=== PATIENT | female | born 1940 | race Caucasian/White ===

== ENCOUNTER → 2016-08-18 | Outpatient (REF) | payer MEDICARE | LOC: M LAB REF 12:55 | PROVIDERS: ATTEND Internal Medicine Nephrology | DX: N39.0 Urinary tract infection, site not specified (principal) ==

== ENCOUNTER → 2020-12-14 | Outpatient (REF) | payer MEDICARE | LOC: M LAB REF 12:55 | PROVIDERS: ATTEND Internal Medicine Nephrology | DX: E11.22 Type 2 diabetes mellitus with diabetic chronic kidney disease (principal); E83.42 Hypomagnesemia ==

== ENCOUNTER → 2024-04-05 | Outpatient (REF) | payer MEDICARE ==
[2024-04-05 18:19] LABS: TOTAL PROTEIN,RANDOM URINE 25.3 MG/DL (0.0-14.0)
[2024-04-05 18:24] LABS: CREATININE,RANDOM URINE 142.6 MG/DL
== END ==
LOC: M LAB REF 17:03
PROVIDERS: ATTEND Internal Medicine Nephrology
DX: E11.22 Type 2 diabetes mellitus with diabetic chronic kidney disease (principal)